=== PATIENT | male | born 1960 | race Caucasian/White ===

== ENCOUNTER 2017-01-02 09:38 | Emergency (ER) | payer OTHER ==
[2017-01-02 09:48] VITALS: BP 150/90; PULSE 66; RESP 16; O2SAT 97
[2017-01-02 09:54] VITALS: PULSE 66; RESP 16; O2SAT 97
--- NOTE | 2017-01-02 09:55 | ED.REPORT ---
HPI-Trauma Minor / Fall Date of Service Jan 02, 2017 ED Provider: Halley Celaya MD 56 year old male presents to the ER complaining of right eye pain secondary to being hit in the eye with a baseball yesterday while at work. 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 A ball was hit and deflected off of a net frame above the patient's head, and struck him in the eye. He reports various visual disturbances since the injury, including multiple "floating specks" in his field of vision, "motion" in his lower field of vision, retinal flashes, and blurred vision. Symptoms have been treated with Tylenol last night. Nursing Notes Stated Complaint: HIT IN THE RIGHT EYE/L AND I Chief Complaint: Eye Nursing Notes Reviewed: Yes Allergies: Coded Allergies: No Known Allergies (Unverified , 01/02/17) General Time Seen by MD: 09:54 Chief Complaint Face injury (Right Eye) Hx Obtained From: Patient Arrived By: Walk-in Onset Occurred: Yesterday Symptom Duration: Since onset Caused by: Accidental Context: Occurred at: Sports injury Location: Eye right Quality: Painful Severity: Current: Moderate Severity: Maximum: Moderate Associated with: Reports: Vision change Similar Sx Previous: No Past Medical History Past Medical History Healthy Past Surgical History Reports: Back/neck surgery (Cervical) Smoking History Never Smoker Ambulatory Status Independent Review of Systems Eyes: Reports: Blurred right, Eye pain right, Denies: Visual loss bilateral Musculoskeletal: Denies: Back pain, Extremity pain, Joint pain, Lumbar pain, Neck pain Neurologic: Denies: Headache, Syncope Complete sys rev & neg: except as marked. Physical Exam Initial Vital Signs Vital Signs (First) Date Time Temp Pulse Resp B/P Pulse Ox O2 Delivery O2 Flow Rate FiO2 01/02/17 09:48 36.7 66 16 150/90 97 Initial VS: Reviewed Extremities: Vascular intact, Neuro intact, No swelling, No tenderness Skin: Warm, Dry, No cyanosis Neurologic: Alert, Oriented, Nonfocal Psychiatric: Mood/affect normal, Behavior normal, Normal thought content General/Constitutional: Awake, Alert, No acute distress, Well developed, Well nourished Neck: Atraumatic, Supple, Full range of motion, No swelling, Non-tender, No midline vertebral tend Head / Eyes: Normocephalic Cornea/Anterior Chamber: Negative: Hyphema R Ecchymosis inferior to the right eye. Inferior orbital rim tendereness. No supraorbital tenderness. 20/20 left 20/60 right Interpretation & Diagnostics CT ORBITS WITHOUT CONTRAST IMPRESSION: No fracture. Dictated by: Louann Ricardo MD, PhD on 01/02/2017 at 11:00 Approved by: Louann Ricardo MD, PhD on 01/02/2017 at 11:00 Procedures Slit Lamp Exam Superior Right retina not well seen. Time: 10: Procedure Performed by: ED physician Which Eye: Right Cornea/Ant Chamber/Iris/Lens: Cornea normal Vitreous/Retina/Optic Nerve: Optic nerve normal Re-Eval/Medical Decision Re-Evaluation/Progress : Time of Eval: 10:02 Re-Evaluation/Progress Note: Discussed physical examination and updated patient on the plan of care. Consultation : Referral / Consult Name: Carolynn Lerma MD Consulted With: Shipfitter Apprentice Call Returned at: 11:35 Knotting Machine Operator Portable: Will see in office Note: Discharge with copy of CT. Will see patient immediately. Counseled Regarding: Diagnosis, Need for follow-up, When/why to return to ED Discharge & Departure Impression: Primary Impression: Eye trauma Disposition: Home Discharge Condition All VS Reviewed: Yes Condition: Stable Your eye/orbit CT in the ER shows no fractures or blood clots behind your eye. I am concerned with the blurry vision and the streaks of light you saw in that eye last night. I have spoken with our expansion joint finisher, Dr. Lerma. She would like to see you immediately. Her office is [facility] on [address]. Northbound (from [place]): Take [address] and turn right onto [address]. You will go about of a mile and turn right onto [address]. Turn left onto [address] and they are on your right. Family emergency room please go straight to their office she is expecting you. Please share the copy of the ER note that I have given you as well as the CT scan results. Good luck with the baseball season - but not too good, my kids play for [employer]:) Referrals: Errol Camejo MD (Family) Carolynn Lerma MD Scribe Attestation Portions of this note were transcribed by Leonid Syed. I, Dr. Celaya, personally performed the history, physical exam and medical decision-making; I reviewed and confirmed the accuracy of the information in the transcribed note. Signed by: Jeannie Holt, 01/02/2017 and 11:37 copies to: Carolynn Lerma MD; Errol Camejo MD, Shawna L MD Jan 02, 2017 09:54 LEONID SYED Jan 02, 2017 10:07
[2017-01-02] MEDS ORDERED: Tetracaine 0.5% 4 mL Ophthalmic Solution ONE (09:57)
[2017-01-02] MEDS ORDERED: Fluorescein 0.6 mg Ophthalmic Strip ONE (09:57)
[2017-01-02] MEDS ORDERED: 0.9% Sodium Chloride Inhalation Solution ONE (09:57)
--- NOTE | 2017-01-08 14:42 | DRSVH ---
PROCEDURE: CT ORBITS WITHOUT CONTRAST ([id number]) INDICATIONS: trauma to right eye TECHNIQUE: Noncontrast 3.0 mm axial images acquired through the orbits. For radiation dose reduction, the follo wing was used: automated exposure control. COMPARISON: None. FINDINGS: Image quality: Excellent. Orbits: Globes are symmetrical. No metallic foreign bodies. The optic nerves are normal in size. No retrobulbar masses or fat abnormalities. The extra-ocular muscles are normal and symmetrical in a ppearance. Lacrimal glands are normal in size. Optic chiasm is normal. Mild right periorbital soft tissue swelling is noted. Intracranial: Visualized portions of the cerebral hemispheres, brainstem, and spinal cord are normal . Bones and sinuses: Visualized calvarium and facial bones appear intact. Visualized sinuses and mast oids are clear. 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 IMPRESSION: No fracture. Dictated by: Louann Ricardo MD, PhD on 01/02/2017 at 11:00 Approved by: Louann Ricardo MD, PhD on 01/02/2017 at 11:03
== END 2017-01-02 11:51 | disposition home or self-care (01) ==
LOC: SED 09:38
DX: S05.11XA Contusion of eyeball and orbital tissues, right eye, initial encounter (principal); W21.03XA Struck by baseball, initial encounter; Y93.64 Activity, baseball; Y92.213 High school as the place of occurrence of the external cause; Y99.0 Civilian activity done for income or pay